=== PATIENT | male | born 1960 | race Caucasian/White ===

== ENCOUNTER 2017-02-20 06:44 | Day surgery (SDC) | payer BC ==
[~2017-02-20] VITALS: Ht 180.3 cm; Wt 80.6 kg
[~2017-02-20 06:44] MED LIST: HYDROCHLOROTHIA25 MG PO; LISINOPRIL20 MG PO; LISINOPRIL40 MG PO; TRIAMCINOLONE A0.13 TOP
--- NOTE | 2017-02-20 07:17 | NUR ---
PRE OP INSTRUCTIONS GIVEN AND SAFETY ISSUES DISCUSSED PT HAD QUESTIONS ANSWERED PT CONFIRMED PROCEDURE PT SIGNED CONSENT DR BARROSO IN TO SEE PT
--- NOTE | 2017-02-20 08:46 | Provider's Discharge Care Plan ---
Problem, Goal, Plan Problem List 1. Status post colonoscopy Goals: Screening Instructions: Follow up as needed, Take meds as directed
--- NOTE | 2017-02-20 08:46 | Provider's Discharge Care Plan ---
Problem, Goal, Plan Problem List 1. Status post colonoscopy Goals: Screening Instructions: Follow up as needed, Take meds as directed
--- NOTE | 2017-02-20 08:49 | Operative Report ---
Operative Report Date of Surgery: 02/20/17 Preoperate Diagnosis: screening colonoscopy Postoperative Diagnosis: minor sigmoid diverticulosis Surgeon: Kamari Pond MD Director Of [employer] Surgeon: none Procedure Performed: Colonoscopy Anesthesia: Total intravenous anesthesia Indications: A 57-year-old male scheduled for screening colonoscopy. Patient on occasion has noticed bright red blood on the stool and toilet paper with hard stool or constipation. FINDINGS: Normal appearing cecum, descending, transverse, descending colon. Patient was noted minor diverticulosis of the sigmoid. Rectal vaultl the normal Surgical Technique: Patient was brought to the operating room. Patient was placed in the left lateral decubitus position. Patient was administered TIVA by anesthesia. Once anesthesia had taken effect digital rectal examination was performed. No masses or stenosis was appreciated. This was then followed by the passage of a fiberoptic video flexible Olympus colonoscope. The scope was then passed without difficulty and the cecum was visualized. The cecum was identified by anatomical landmarks and anterior abdominal wall ballottement. On withdrawing the scope the aforementioned findings were noted. The scope was then retroflexed and a good view of the rectal wall obtained. The scope was then completely withdrawn. Patient tolerated procedure well. Patient was transferred to the recovery room in stable condition. There were no intraoperative or anesthetic complications.
--- NOTE | 2017-02-20 09:01 | NUR ---
ARRIVED TO UNIT SEDATWD, LEFT SIDE LYING. MONITORING BP CLOSELY, GIVING FLUID BOLUS
--- NOTE | 2017-02-20 09:39 | NUR ---
PATIENT RETURNED TO THE FLOOR AWAKE AND TALKING. VSS. PO OFFERED AND TOLERATED. KB
[2017-02-20 10:16] VITALS: BP 107/75
--- NOTE | 2017-02-20 10:27 | NUR ---
PATIENT UP IN ROOM INDEPENDENTLY. TOLERATING PO. DISCHARGE INSTRUCTIONS GIVEN TO PATIENT. QUESITONS ANSWERED. PATIENT VERBALIZES UNDERSTANDING. DISCHARGED HOME WITH A FRIEND. KB
== END 2017-02-20 10:26 | disposition home or self-care (01) ==
LOC: SCU SRH 06:44 → OR SRH 06:44 → SCU SRH 06:49 → OR SRH 08:15
PROVIDERS: Specialist
PROC: 0DJD8ZZ Inspection of Lower Intestinal Tract, Via Natural or Artificial Opening Endoscopic (ICD-10-PCS; principal; 2017-02-20 08:15)
DX: Z12.11 Encounter for screening for malignant neoplasm of colon (principal); I10 Essential (primary) hypertension; K57.30 Diverticulosis of large intestine without perforation or abscess without bleeding
CPT/HCPCS: 29229; 29240; 50004; 60001; 83526; 85809